=== PATIENT | female | born 1955 | race Caucasian/White ===

== ENCOUNTER → 2018-06-19 | Outpatient (CLI) | payer OTHER | LOC: BMCIMAGING 12:54 | PROVIDERS: ATTEND Internal Medicine | DX: Z12.31 Encounter for screening mammogram for malignant neoplasm of breast (principal) ==

== ENCOUNTER 2018-11-30 15:52 | Emergency (ER) | payer OTHER ==
--- NOTE | 2018-11-30 16:09 | EDPHY ---
H & P Time Seen by Provider: 11/30/18 15:56 HPI/ROS: CHIEF COMPLAINT: Rule out DVT HISTORY OF PRESENT ILLNESS: The patient is a 63-year-old female who presents emergency department to "rule out DVT."The patient states that she had bunionectomy and hammertoe surgery on 11/18/2018. Patient was able to hobble bowel for the 1st few days after the surgery and then she was in a walking shoe. She went into physical therapy yesterday and started to complain of right lateral lower leg pain. This is on the anterior aspect of her calf. The patient denies any chest pain or shortness of breath. No previous DVT. No family history of DVT. The patient is not anticoagulated. No proximal leg discomfort. No discoloration of her leg. No swelling. REVIEW OF SYSTEMS: 10 systems were reveiwed and are negative with the exception of the elements mentioned in the history of present illness. Past Medical/Surgical History: The denies Past surgical history: Includes orthopedic surgery, fissure surgery Social history: Patient does not smoke Smoking Status: Never smoked Physical Exam: GENERAL: Well-appearing, in no acute distress, alert. HEENT: Eyes normal to inspection, normal pharynx, no signs of dehydration. NECK: Normal, supple. RESPIRATORY: Clear to auscultation bilaterally, no rales, rhonchi or wheezing. CVS: Regular rate and rhythm, no rubs, murmurs, or gallops. ABDOMEN: Soft, nontender, nondistended, no organomegaly. BACK: Normal to inspection, no CVA tenderness. SKIN: Normal color, no rash, warm, dry. No pallor. EXTREMITIES: The patient's right lower extremity appears normal. There is no calf swelling. There is mild anterior/lateral lower leg tenderness palpation. No palpable mass. No redness or warmth. Posterior tenderness. No pedal edema , no Homans sign or cords, no joint swelling. NEURO/PSYCH: Alert and oriented, normal mood and affect, normal motor sensory exam. Constitutional: Initial Vital Signs Temperature (C) 36.2 C 11/30/18 15:58 Heart Rate 64 11/30/18 15:58 Respiratory Rate 16 11/30/18 15:58 Blood Pressure 113/87 H 11/30/18 15:58 O2 Sat (%) 94 11/30/18 15:58 O2 Delivery Mode Room Air Allergies/Adverse Reactions: No Known Allergies Allergy (Unverified 11/30/18 16:03) Home Medications: Medication Instructions Recorded Meloxicam 11/30/18 Omeprazole 11/30/18 Medical Decision Making - Diagnostics Imaging Results: Imaging Impressions Extremity Venous Study 11/30/18 16:09 Impression: No evidence of deep vein thrombosis. Findings discussed with LOREE Silva HIRAM 11/30/2018 at 16:56. ED Course/Re-evaluation: The in the emergency department I discussed possible etiologies with the patient. I answered all her questions. Ultrasound of her right lower extremity was ordered. Ultrasound of right lower extremity: Please refer the dictated report. No acute disease noted. I discussed the results with the patient. I answered all her questions. She was given warnings prior to leaving. She will follow up with primary care physician. Differential Diagnosis: My differential includes but is not limited to DVT, arterial occlusion, muscle strain, cellulitis, abscess Departure - Departure Disposition: Home, Routine, Self-Care Clinical Impression: Leg pain, anterior Qualifiers: Laterality: right Qualified Code(s): M79.604 - Pain in right leg Condition: Good Instructions: Leg Pain (ED) Additional Instructions: Return with increasing pain, weakness, numbness, fever, shortness of breath or chest pain. You need follow-up with primary care physician. Call Sunday morning to make the next available appointment. Referrals: Genet Escobar MD [Primary Care Provider] - 2-3 days, call for appt.
[2018-11-30 17:07] VITALS: BP 118/79
== END 2018-11-30 17:08 | disposition home or self-care (01) ==
DX: M79.604 Pain in right leg (principal)